=== PATIENT | female | born 1970 ===

== ENCOUNTER 2020-01-11 11:46 | Outpatient (CLI) | payer OTHER, SELFPAY ==
[2020-01-16 01:59] LABS: SARS-CoV-2 RNA Undetected (Undetected); SARS-CoV-2 Specimen Source Nasopharynx
== END 2020-01-11 12:06 ==
PROVIDERS: Visit Provider Family Medicine
DX: Z11.59 Encounter for screening for other viral diseases (principal)
CPT/HCPCS: U0003